=== PATIENT | male | born 1995 | race Caucasian/White ===

== ENCOUNTER 2020-03-29 18:42 | Emergency (ER) | payer BC ==
[~2020-03-29] VITALS: Ht 190.5 cm; Wt 119.7 kg
[2020-03-29 18:43] VITALS: BP 146/84
[2020-03-29] MEDS ORDERED: LIDOCAINE 1% MDV 20ML VIAL SC ONE (19:00)
[2020-03-29] MEDS ORDERED: BOOSTRIX/ADACEL VACCINE (DIPHTH/PERTUSS/ACELL/TETANUS) 0.5ML SYR IM ONE (19:00)
[2020-03-29] MEDS ORDERED: KEFL500C17 PO (19:50)
--- NOTE | 2020-03-30 00:20 | REP ---
RIGHT HAND, FOUR VIEWS: There is no evidence of an acute fracture, dislocation or intrinsic bone disease. No radiopaque foreign body is seen in the soft tissues. IMPRESSION: No fracture or dislocation. No radiopaque foreign body is seen in the soft tissues. Electronically Signed by Jeb Wolf MD 04/02/2020 09:33 P
== END 2020-03-29 20:00 | disposition home or self-care (01) ==
LOC: M ED 18:42
DX: S61.411A Laceration without foreign body of right hand, initial encounter (principal); Y92.9 Unspecified place or not applicable; W26.9XXA Contact with unspecified sharp object(s), initial encounter

== ENCOUNTER 2020-04-07 13:13 | Emergency (ER) | payer BC ==
[~2020-04-07] VITALS: Ht 190.5 cm; Wt 121.0 kg
[~2020-04-07 13:13] MED LIST: KEFL500C17 PO
[2020-04-07 13:14] VITALS: BP 150/78
== END 2020-04-07 13:42 | disposition home or self-care (01) ==
LOC: M ED 13:13
DX: Z48.02 Encounter for removal of sutures (principal)